=== PATIENT | female | born 1970 | race Caucasian/White ===

== ENCOUNTER 2017-01-24 08:53 | Inpatient (IN) | payer MEDICARE, MEDICAID ==
[~2017-01-24 08:53] MED LIST: Bupivacaine 0.5%/EPINEPHrine 1:200,000 50 ML MDV ONE; Dexamethasone 4 MG/ML SDV ONE; Meropenem 500 MG SDV ONE; Neostigmine Methylsulfate 1 MG/ML 5 ML Syringe ONE; Ondansetron 4 MG/2 ML SDV ONE; Propofol 200 MG/20 ML SDV ONE; Rocuronium 50 MG/5 ML Vial ONE; Succinylcholine/Normal Saline 200 MG/10 ML Syringe ONE; fentaNYL 250 MCG/5 ML SDV ONE
[2017-01-24] MEDS ORDERED: fentaNYL 25 MCG/HR Transdermal Patch TRDERM ONE (09:00)
[2017-01-24] MEDS ORDERED: Dextrose 5%-Lactated Ringers 1,000 ML IV SCH (10:00)
[2017-01-24] MEDS ORDERED: Naloxone 0.4 MG/ML SDV IVPUSH PRN (10:01)
[2017-01-24] MEDS ORDERED: HYDROmorphone/Normal Saline 15 MG/30 ML PCA IV PRN (10:01)
[2017-01-24] MEDS ORDERED: Naloxone 0.4 MG/ML SDV IV PRN (10:04)
[2017-01-24] MEDS ORDERED: cefOXitin 2 GM in Sodium Chloride 0.9% 50 ML IV ONE (10:30)
[2017-01-24] MEDS ORDERED: Lactated Ringers 1,000 ML ONE (12:16)
[2017-01-24] MEDS ORDERED: Ondansetron 4 MG/2 ML SDV IV PRN (14:03)
[2017-01-24] MEDS: VERIFY FENT PATCH TOP SCH ×2 (15:59→20:38)
[2017-01-24] MEDS: ceFAZolin 2 GM in Sodium Chloride 0.9% 50 ML IV SCH (16:14)
[2017-01-24] MEDS: Dextrose 5%-Lactated Ringers 1,000 ML IV SCH (17:28)
[2017-01-24] MEDS: Acetaminophen/HYDROcodone 325-5 MG Tab PO PRN (20:08)
[2017-01-24] MEDS: Amphetamine/Dextroamphetamine Salts 10 MG Tab PO SCH (20:41)
[2017-01-24] MEDS: buPROPion 100 MG Tab.SR PO SCH (20:42)
[2017-01-24] MEDS ORDERED: Lactated Ringers 500 ML IV SCH (22:00)
[2017-01-24] MEDS ORDERED: Lactated Ringers 500 ML IV ONE (22:15)
[2017-01-25] MEDS: Dextrose 5%-Lactated Ringers 1,000 ML IV SCH (01:07)
[2017-01-25] MEDS: ceFAZolin 2 GM in Sodium Chloride 0.9% 50 ML IV SCH ×2 (01:08→08:38)
[2017-01-25] MEDS: Acetaminophen/HYDROcodone 325-5 MG Tab PO PRN ×2 (05:12→10:01)
[2017-01-25] MEDS ORDERED: Pantoprazole 40 MG Tab.CR PO SCH (07:30)
[2017-01-25 08:14] VITALS: BP 94/50
[2017-01-25] MEDS: buPROPion 100 MG Tab.SR PO SCH (08:51)
[2017-01-25] MEDS: Amphetamine/Dextroamphetamine Salts 10 MG Tab PO SCH (08:51)
[2017-01-25] MEDS ORDERED: Spironolactone 25 MG Tab PO SCH (09:00)
[2017-01-25] MEDS ORDERED: Hydrochlorothiazide 25 MG Tab PO SCH (09:00)
[2017-01-25] MEDS ORDERED: ARIPiprazole 10 MG Tab PO SCH (09:00)
[2017-01-25] MEDS ORDERED: DULoxetine 30 MG Cap PO SCH (09:00)
[2017-01-25] MEDS: VERIFY FENT PATCH TOP SCH (10:02)
[2017-01-27] MEDS ORDERED: fentaNYL 25 MCG/HR Transdermal Patch TRDERM SCH (09:00)
--- NOTE | 2017-01-28 07:51 | DISCH ---
ADMISSION DIAGNOSES: 1. Incarcerated incisional hernia. 2. Chronic fatigue syndrome. 3. Vitamin B deficiency. 4. Depression disorder. 5. Edema. 6. Fibromyositis. 7. Hypothyroidism. 8. Primary fibromyalgia syndrome. 9. Vitamin D deficiency. 10.Seronegative rheumatoid arthritis. 11.Gastroesophageal reflux disease. 12.Constipation. 13.Ulcerative colitis. 14.Raynaud's syndrome. 15.Tobacco use. 16.Obstructive sleep apnea. DISCHARGE DIAGNOSES: Laparoscopic repair of incarcerated incisional hernia and repair of non incarcerated umbilical hernia with mesh on 01/24/2017. HISTORY: Yaneth Keene is a 46-year-old female with incarcerated incisional hernia and an umbilical hernia. After preoperative evaluation and discussion of possible risks and possible complications, she wished to proceed with surgical procedure. HOSPITAL COURSE: Yaneth had her surgery on 01/24/2017. She had no operative complications. On postop day #1, her activity was good. Her vital signs were stable. Her pain was well managed and she was able to be discharged to home. PHYSICAL EXAMINATION: GENERAL: Yaneth Keene is a 46-year-old female. VITAL SIGNS: Height is 5 feet 4.75 inches, weight is 195 pounds. TPR is 98.4, 64, 16. Blood pressure 94/50. HEENT: Negative. NECK: Supple. HEART: Regular rate and rhythm. LUNGS: Clear. ABDOMEN: Dressings dry and intact. Abdominal binder is on. EXTREMITIES: Without peripheral edema. DISPOSITION: Discharged to home. CONDITION: Stable and improving. FOLLOWUP APPOINTMENT: With Anastasiya Sanchez PA-C on 02/04/2017 at 9:15 a.m. HOME MEDICATIONS: [place] 5/325 mg 1 to 2 every 4 hours p.r.n. pain #50. She is to resume her home medication of Adderall 20 mg 3 times daily, calcium citrate one tablet oral daily, vitamin D 2000 international units oral daily, vitamin B12 1000 mcg sublingual daily, Cymbalta 60 mg oral daily, folic acid 1 mg oral daily, hydrochlorothiazide 25 mg oral daily, levothyroxine 125 mcg oral before breakfast, methotrexate 2.5 mg oral every 7 days, multivitamin one tablet daily, omeprazole 20 mg every morning, Aldactone 12.5 mg oral daily, vitamin B complex 0.5 tabs oral daily, and bupropion 200 mg oral twice daily. DIET AFTER DISCHARGE: Usual diet as tolerated. Drink 8 to 10 glasses of water a day. ACTIVITY: After discharge, no lifting greater than 10 pounds for three weeks. Other activity, walk 8 times daily inside your home. Driving, do not drive on pain medication. May shower. Notify provider of fever, increased pain, nausea, or vomiting. Wound incision, keep site clean and dry. Wear abdominal binder for eight weeks with a pressure dressing over the previous hernia sites, rolled up washcloth worked the best. SPECIAL INSTRUCTION: Use incentive spirometer 10 times every hour while awake.
--- NOTE | 2017-01-29 12:34 | OR ---
DATE OF PROCEDURE: 01/24/2017 PREOPERATIVE DIAGNOSIS: Incarcerated incisional hernia. POSTOPERATIVE DIAGNOSES: 1. Incarcerated incisional hernia. 2. Non-incarcerated umbilical hernia. 3. Extensive intraabdominal adhesions. OPERATIVE PROCEDURE: Diagnostic laparoscopy with: 1. Repair of incarcerated incisional hernia with mesh (59659). 2. Repair of non-incarcerated umbilical hernia with mesh (88797). 3. Placement of Vicryl mesh to limit postoperative adhesion formation between the small bowel and the pelvic and abdominal garber (52092). ANESTHESIA: General. LETTERPRESS SETTER: Anastasiya Sanchez PA-C. INDICATIONS FOR PROCEDURE: This is a 46-year-old female presenting with an increasingly symptomatic incisional hernia, located within the epigastrium associated with the previous laparoscopic trocar site. Plan is to proceed with laparoscopic or, if necessary, open repair of the hernia with mesh. Potential risks including bleeding, infection, injury to underlying viscera, potential recurrence of the hernia or infection of the mesh were all gone over, and the patient wishes to proceed. DETAILS OF PROCEDURE: The patient was taken to the operating room. After general endotracheal anesthesia was induced, a Liu catheter was inserted and the abdomen prepped and draped. In the left mid abdomen, a transverse incision was made. The peritoneal cavity entered under direct vision with Optiview trocar, inflated to 15 mmHg pressure of CO2. Following this, 5 mm trocars were placed in the left upper and left lower abdominal wall. The patient was noted to have quite extensive adhesions between the pelvic and abdominal wall and omentum, as well as some areas of small bowel. These were taken down with Harmonic scalpel. Eventually, this led to identification of the incarcerated hernia. This contained some preperitoneal fat, along with some omentum. The latter was dissected free from the hernia sac and that area excised and delivered from the field. The falciform ligament was then dissected away from the abdominal wall up to the upper abdomen to facilitate adequate placement of the mesh. The patient was noted also to have an umbilical hernia, which was not incarcerated. At that this point, a Ventralight ST mesh with the balloon positioning system was selected. A 20.5 cm circular mesh was selected and then positioned over the abdominal wall. A sharif was then placed where the central balloon catheter would be pulled up, which would result in the mesh covering the area of both hernias with a wide margin. Mesh was then soaked in antibiotic- containing saline solution, rolled up, and brought into the peritoneal location. After it was oriented with the polypropylene side of the mesh facing the abdominal wall, the catheter was brought through a stab wound with a suture passer, and the balloon inflated, thus positioning the mesh up against the abdominal wall. Using absorbable tacking screws, the mesh was then circumferentially fixed to the abdominal wall. This resulted in what appeared to be a good coverage of both hernias. The catheter was then unclamped and the balloon removed, leaving the mesh in position. The area of dissection was inspected. No evident complications were noted. The patient was felt to be at risk for significant recurrent adhesion formation, which may complicate further surgical procedures or result in bowel obstruction. Given this, a 12 x 12 inch segment of Vicryl mesh was placed into the abdomen. This was placed along the area of the bladder posteriorly, along the pelvic sidewalls, and up against the abdominal wall underlying the mesh to displace the small bowel from those surfaces to limit recurrent adhesion formation. At that point, no further problems were noted. The fascia at the 12 mm camera port was closed with 0 Vicryl stitch and the skin closed with 4-0 Vicryl skin stitch at each of the incisions. The patient was taken to the recovery room in satisfactory condition. Physician nurses assistant, Anastasiya Sanchez, played an essential role in assisting in this case, helping to retract structures as needed, positioning the patient, as well suturing and cutting sutures when indicated. Her presence improved the patient's safety and decreased operative time. Jose Santiago MD /[id number]
== END 2017-01-25 11:08 | disposition home or self-care (01) | DRG 337 ==
LOC: JP.MS 09:22 → JP.SDS 09:22 → EDSTATUS 11:45 → JP.ICU 13:30
PROVIDERS: ADMIT Surgery; ATTEND Surgery
PROC: 0DN84ZZ Release Small Intestine, Percutaneous Endoscopic Approach (ICD-10-PCS; principal; 2017-01-24)
PROC: 3E0M05Z Introduction of Adhesion Barrier into Peritoneal Cavity, Open Approach (ICD-10-PCS; principal; 2017-01-24)
PROC: 0DNW4ZZ Release Peritoneum, Percutaneous Endoscopic Approach (ICD-10-PCS; principal; 2017-01-24)
PROC: 0DNT4ZZ (ICD-10-PCS; principal; 2017-01-24)
PROC: 0WUF4JZ Supplement Abdominal Wall with Synthetic Substitute, Percutaneous Endoscopic Approach (ICD-10-PCS; principal; 2017-01-24)
DX: K43.0 Incisional hernia with obstruction, without gangrene (principal); K42.9 Umbilical hernia without obstruction or gangrene; K66.0 Peritoneal adhesions (postprocedural) (postinfection); F32.9 Major depressive disorder, single episode, unspecified; E03.9 Hypothyroidism, unspecified; M79.7 Fibromyalgia; E55.9 Vitamin D deficiency, unspecified; M06.00 Rheumatoid arthritis without rheumatoid factor, unspecified site; K21.9 Gastro-esophageal reflux disease without esophagitis; K59.00 Constipation, unspecified; F17.210 Nicotine dependence, cigarettes, uncomplicated; E53.8 Deficiency of other specified B group vitamins; Z98.84 Bariatric surgery status
CPT/HCPCS: 88302; A9270-GY; C1781; J0690; J0694; J1100; J1170; J2185; J2405; J2704; J3010; J7042; J7050; J7120